=== PATIENT | male | born 1965 | race Caucasian/White ===

== ENCOUNTER 2017-03-24 21:06 | Emergency (ER) | payer BC ==
[2017-03-24 21:22] VITALS: BP 122/77
--- NOTE | 2017-03-24 21:48 | UC ---
Eye Complaint HPI - HPI Summary HPI Summary: LEFT EYE IRRITATION,.REDNESS SINCE THIS MORNING, MILD CONGESTION LAST FEW DAYS. NO TRAUMA. NO COUGH. NO SORETHROAT. NO EAR ACHE. - History of Current Complaint Chief Complaint: UCEye Stated Complaint: EYE COMPLAINT Time Seen by Provider: 03/24/17 21:24 Hx Obtained From: Patient Onset/Duration: Gradual Onset, Lasting Hours, Still Present Timing: Constant Severity Initially: Mild Severity Currently: Mild Pain Intensity: 2 Pain Scale Used: 0-10 Numeric Location of Injury: Conjunctiva Character: Dull Aggravating Factor(s): Nothing Alleviating Factor(s): Nothing Associated Signs And Symptoms: Positive: Drainage (Clear). Negative: Drainage ( Purulent), Vision Impairment Bilateral, Vision Impairment Right, Vision Impairment Left, Fever, Swelling - Risk Factors Penetrating Injury Risk Factor: Negative Acute Glaucoma Risk Factors: Negative - Allergies/Home Medications Allergies/Adverse Reactions: Allergies Allergy/AdvReac Type Severity Reaction Status Date / Time Atorvastatin [From Lipitor] Allergy INCREASED Verified 03/24/17 21:22 LIVER ENZYMES Midazolam [From Versed] Allergy Altered Verified 03/24/17 21:22 Mental Status-COMBATIVE Pravastatin [From Pravachol] Allergy INCREASED Verified 03/24/17 21:22 LIVER ENZYMES Tetanus Toxoid Allergy Unknown Verified 03/24/17 21:22 Reaction Details cats and dogs Allergy none Uncoded 03/24/17 21:22 Avoids ASA and NSAIDS AdvReac high liver Uncoded 03/24/17 21:22 enzymes PMH/Surg Hx/FS Hx/Imm Hx Previously Healthy: Yes Other History Of: Negative For: HIV, Hepatitis B, Hepatitis C, Anticoagulant Therapy - Surgical History Surgical History: Yes Surgery Procedure, Year, and Place: 2008 [place]IC [place]. 1991 L5 S1 vertebrae disc. 2010[facility] [place]. 2008 MONS[place]AT FILTER, [place] - 1.5T ONLY FOR MRIs. right ankle ligament repair 1-2 yrs ago - Family History Known Family History: Positive: Hypertension, Diabetes - Social History Occupation: Employed Full-time Lives: With Family Alcohol Use: None Substance Use Type: None Smoking Status (MU): Never Smoked Tobacco Household Exposure Type: Cigarettes - Immunization History Most Recent Influenza Vaccination: JUN 2014 Most Recent Tetanus Shot: allergy Review of Systems Constitutional: Negative Skin: Negative Eyes: Eye Redness ENT: Negative Respiratory: Negative Cardiovascular: Negative Gastrointestinal: Negative Genitourinary: Negative Motor: Negative Neurovascular: Negative Musculoskeletal: Negative Neurological: Negative Psychological: Negative All Other Systems Reviewed And Are Negative: Yes Physical Exam Triage Information Reviewed: Yes Appearance: Well-Appearing, No Pain Distress, Well-Nourished Vital Signs: Initial Vital Signs Temp 99.2 F 03/24/17 21:18 Pulse 56 03/24/17 21:18 Resp 16 03/24/17 21:18 BP 122/77 03/24/17 21:18 Pulse Ox 98 03/24/17 21:18 Vital Signs Reviewed: Yes Eyes: Positive: Conjunctiva Inflamed - LEFT, Discharge ENT: Positive: Hearing grossly normal, Pharynx normal, TM dull Dental Exam: Normal Neck exam: Normal Neck: Positive: Supple, Nontender, No Lymphadenopathy Respiratory Exam: Normal Respiratory: Positive: Chest non-tender, Lungs clear, Normal breath sounds, No respiratory distress, No accessory muscle use Cardiovascular Exam: Normal Cardiovascular: Positive: RRR, No Murmur, Pulses Normal Abdominal Exam: Normal Musculoskeletal Exam: Normal Musculoskeletal: Positive: Strength Intact, ROM Intact, No Edema Neurological Exam: Normal Psychological Exam: Normal Skin Exam: Normal Eye Complaint Course/Dx - Differential Dx/Diagnosis Differential Diagnosis/HQI/PQRI: Conjunctivitis, Corneal Abrasion Provider Diagnoses: LEFT CONJUNCTIVITIS Discharge - Discharge Plan Condition: Stable Disposition: HOME Prescriptions: Tobramycin 0.3% OPHTH.ZOHREH* 1 drop LEFT EYE TID #1 btl Patient Education Materials: Conjunctivitis (ED) Referrals: Rachel CAMARGO,Reyna Loo [Primary Care Provider] -
== END 2017-03-24 21:36 | disposition home or self-care (01) ==
LOC: UCCORT 21:06
DX: H10.9 Unspecified conjunctivitis (principal)
CPT/HCPCS: 99212; G0463

== ENCOUNTER 2017-10-06 10:12 | Emergency (ER) | payer BC | END 2017-10-06 13:47 | disposition left against medical advice (07) | LOC: UCCORT 10:12 | DX: R05 Cough (principal); Z53.21 Procedure and treatment not carried out due to patient leaving prior to being seen by health care provider ==

== ENCOUNTER 2017-10-06 14:05 | Emergency (ER) | payer BC ==
[2017-10-06 15:43] VITALS: BP 138/78
--- NOTE | 2017-10-06 15:59 | ED ---
Respiratory - HPI Summary HPI Summary: 52 yr old male with coughing, congestion, muscle aches, and malaise. His had the flu, and he is a high school guidance counselor. The patient denies feeling like he has fever, but has one here. He has no other complaints. - History of Current Complaint Chief Complaint: UCRespiratory Stated Complaint: ST,COUGH,ACHY Time Seen by Provider: 10/06/17 15:38 Pain Intensity: 0 - Allergy/Home Medications Allergies/Adverse Reactions: Allergies Allergy/AdvReac Type Severity Reaction Status Date / Time MS Atorvastatin Allergy INCREASED Verified 10/06/17 15:43 [From Lipitor] LIVER ENZYMES MS Midazolam [From Versed] Allergy Altered Verified 10/06/17 15:43 Mental Status-COMBATIVE MS Pravastatin Allergy INCREASED Verified 10/06/17 15:43 [From Pravachol] LIVER ENZYMES MS Tetanus Toxoid Allergy Unknown Verified 10/06/17 15:43 [Tetanus Toxoid] Reaction Details cats and dogs Allergy none Uncoded 10/06/17 15:43 Avoids ASA and NSAIDS AdvReac high liver Uncoded 10/06/17 15:43 enzymes PMH/Surg Hx/FS Hx/Imm Hx Endocrine/Hematology History: Denies: Hx Anticoagulant Therapy, Hx Diabetes, Hx Thyroid Disease Cardiovascular History: Reports: Hx Coronary Artery Disease - CHOLESTEROL CONTROL WITH MEDS, Hx Hypertension - CONTROL WITH MEDS Denies: Hx Congestive Heart Failure, Hx Deep Vein Thrombosis, Hx Myocardial Infarction, Hx Pacemaker/ICD Respiratory History: Reports: Hx Pulmonary Embolism - 2009 X 2, WITH MONSERRAT FILTER INSERTED Denies: Hx Asthma, Hx Chronic Obstructive Pulmonary Disease (COPD), Hx Lung Cancer, Hx Pneumonia GI History: Reports: Hx Gall Bladder Disease - Cholecystectomy 2008., Hx Gastroesophageal Reflux Disease - CONTROL WITH MEDS Denies: Hx Gastrointestinal Bleed, Hx Ulcer, Hx Urosepsis Comment Only: Other GI Disorders - 2009 HX OF PANCREATITIS, 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 Denies: Hx Kidney Stones Musculoskeletal History: Reports: Other Musculoskeletal History - HX OF MICRODISCECTOMY L5/S1 Denies: Hx Scoliosis Sensory History: Denies: Hx Contacts or Glasses, Hx Hearing Aid Opthamlomology History: Denies: Hx Contacts or Glasses Neurological History: Denies: Hx Dementia, Hx Headaches, Hx Migraine, Hx Seizures, Hx Transient Ischemic Attacks (TIA), Other Neuro Impairments/Disorders Psychiatric History: Reports: Hx Depression - CONTROL WITH MEDS Denies: Hx Anxiety, Hx Panic Disorder, Hx Schizophrenia, Hx Bipolar Disorder - Surgical History Surgery Procedure, Year, and Place: 2008 [facility]IC [facility]OM[facility]. 1991 L5 S1 vertebrae disc. 2011[facility]. 2008 [place]AT FILTER, [place] - 1.5T ONLY FOR MRIs. right ankle ligament repair 1-2 yrs ago Hx Anesthesia Reactions: Yes - VERSED - SEVERE ALTERED MENTAL STATUS-COMBATIVE Infectious Disease History: No Infectious Disease History: Reports: Hx Shingles Denies: Hx Hepatitis, Traveled Outside the [place] in Last 30 Days - Family History Known Family History: Positive: Hypertension, Diabetes - Social History Alcohol Use: None Substance Use Type: Reports: None Smoking Status (MU): Never Smoked Tobacco Review of Systems Positive: Fatigue Positive: Nasal Discharge Positive: Cough Positive: Myalgia All Other Systems Reviewed And Are Negative: Yes Physical Exam Triage Information Reviewed: Yes Vital Signs On Initial Exam: Initial Vitals Temp Pulse Resp BP Pulse Ox 100.3 F 80 18 138/78 97 10/06/17 15:37 10/06/17 15:37 10/06/17 15:37 10/06/17 15:37 10/06/17 15:37 Vital Signs Reviewed: Yes Appearance: Positive: Well-Appearing, No Pain Distress Skin: Positive: Warm, Skin Color Reflects Adequate Perfusion Head/Face: Positive: Normal Head/Face Inspection Eyes: Positive: EOMI ENT: Positive: Pharynx normal, TMs normal Neck: Positive: Nontender Respiratory/Lung Sounds: Positive: Clear to Auscultation, Breath Sounds Present Cardiovascular: Positive: RRR. Negative: Murmur Abdomen Description: Positive: Nontender Musculoskeletal: Positive: Strength/ROM Intact Neurological: Positive: Sensory/Motor Intact, Alert, Oriented to Person Place, Time, CN Intact II-III Psychiatric: Positive: Normal - Gaffney Coma Scale Best Eye Response: 4 - Spontaneous Best Motor Response: 6 - Obeys Commands Best Verbal Response: 5 - Oriented Coma Scale Total: 15 Diagnostics - Vital Signs Vital Signs Temp Pulse Resp BP Pulse Ox 10/06/17 15:37 100.3 F 80 18 138/78 97 - Laboratory Lab Statement: Any lab studies that have been ordered have been reviewed, and results considered in the medical decision making process. Disposition - Course Course Of Treatment: 52 yr old male with flu symptoms. - Diagnoses Provider Diagnoses: Influenza Discharge - Discharge Plan Condition: Good Disposition: HOME Prescriptions: Oseltamivir CAP* [Tamiflu CAP*] 75 mg PO BID #10 cap Patient Education Materials: Influenza (ED), Hypertension (ED) Referrals: Jean Mota MD [Primary Care Provider] -
== END 2017-10-06 16:19 | disposition home or self-care (01) ==
LOC: UCCORT 14:05
DX: J11.1 Influenza due to unidentified influenza virus with other respiratory manifestations (principal); I25.10 Atherosclerotic heart disease of native coronary artery without angina pectoris; I10 Essential (primary) hypertension; Z86.711 Personal history of pulmonary embolism
CPT/HCPCS: 87502; 99212; G0463